=== PATIENT | female | born 2000 | race Hispanic/Latino ===

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

== ENCOUNTER 2021-12-29 08:19 | Emergency (ER) | payer MEDICAID, OTHER | END 2021-12-29 10:19 | disposition home or self-care (01) | LOC: NAV ERS 08:19 | DX: O99.341 Other mental disorders complicating pregnancy, first trimester (principal); F41.9 Anxiety disorder, unspecified; O99.511 Diseases of the respiratory system complicating pregnancy, first trimester; J45.990 Exercise induced bronchospasm; O99.891 Other specified diseases and conditions complicating pregnancy; N83.209 Unspecified ovarian cyst, unspecified side; Z3A.01 Less than 8 weeks gestation of pregnancy | CPT/HCPCS: 99283 ==

== ENCOUNTER 2025-10-25 01:10 | Emergency (ER) | payer BC, OTHER ==
[2025-10-25] MEDS ORDERED: Oseltamivir 75 MG CAP ONE (01:53)
== END 2025-10-25 01:58 | disposition home or self-care (01) ==
LOC: NAV ERS 01:10
DX: J10.1 Influenza due to other identified influenza virus with other respiratory manifestations (principal)
CPT/HCPCS: 87428; 99283